=== PATIENT | female | born 1990 | race Native Hawaiian/Other Pacific Islander ===

== ENCOUNTER 2016-03-28 22:45 | Emergency (ER) | payer OTHER ==
[2016-03-29] MEDS ORDERED: IBUPROFEN 800 MG TABLET ONE (01:33)
== END 2016-03-29 01:40 | disposition home or self-care (01) ==
LOC: ED 22:45
DX: S16.1XXA Strain of muscle, fascia and tendon at neck level, initial encounter (principal); S50.12XA Contusion of left forearm, initial encounter; S80.11XA Contusion of right lower leg, initial encounter; E10.9 Type 1 diabetes mellitus without complications; Z79.4 Long term (current) use of insulin; V48.5XXA Car driver injured in noncollision transport accident in traffic accident, initial encounter; Y92.410 Unspecified street and highway as the place of occurrence of the external cause
CPT/HCPCS: 99283 ×2; A9270